=== PATIENT | female | born 1965 | race Caucasian/White ===

== ENCOUNTER 2024-08-02 21:45 | Inpatient (IN) | payer OTHER ==
[2024-08-02] MEDS ORDERED: MORPHINE SULFATE 2 MG/ML SYRINGE ONE (22:30)
[2024-08-02] MEDS ORDERED: diazePAM 5 MG TABLET ONE (22:30)
[2024-08-02] MEDS: morphine CARPU-JECT 2 MG/1 ML DISP.SYRIN IVPUSH ONE (22:47)
[2024-08-02] MEDS: diazePAM 5 MG TABLET PO ONE (22:47)
[2024-08-02 22:55] LABS: ABSOLUTE IMMATURE GRANULOCYTES 0.02 x10^3/uL (0.0-0.031); BASOPHILS # 0.04 x10^3/uL (0.01-0.08); EOSINOPHIL % 1.8 % (0.7-5.8); EOSINOPHILS # 0.13 x10^3/uL (0.04-0.36); HEMOGLOBIN 10.6 g/dL (11.2-15.7); MCHC 32.1 g/dl (32.2-35.5); MEAN CELL VOLUME 85.9 fl (79.4-94.8); MEAN PLT VOLUME 11.7 fl (9.4-12.3); MONOCYTE # 0.67 x10^3/uL (0.24-0.86); MONOCYTE % 9.2 % (4.7-12.5); PLATELET COUNT 166 x10^3/uL (182-369); RDW 13.4 % (12.3-16.6)
[2024-08-02 23:25] LABS: POTASSIUM 5.1 mmol/L (3.5-5.1)
[2024-08-02 23:27] LABS: CALCIUM 9.6 mg/dL (8.5-10.1)
[2024-08-02 23:28] LABS: ALBUMIN 3.8 g/dl (3.4-5.0); MAGNESIUM 2.4 mg/dL (1.8-2.4)
[2024-08-02 23:31] LABS: CREATININE 1.2 mg/dL (0.55-1.3)
[2024-08-02 23:33] LABS: BILIRUBIN,TOTAL 0.4 mg/dL (0.2-1); LACTIC ACID 2.4 mmol/L (0.4-2.0)
[2024-08-02 23:36] LABS: N-TERMINAL BNP 41.9 pg/ml (5-125)
[2024-08-03 00:34] LABS: INR 0.99 (0.83-1.09); PROTHROMBIN TIME (PATIENT) 10.9 SEC (9.7-13.0)
[2024-08-03 00:37] LABS: ACTIVATED PTT 29.1 SECONDS (25.2-36.5)
[2024-08-03] MEDS: SODIUM CHLORIDE 0.9% 1000 ML INFUS.BAG IV ONE (00:38)
[2024-08-03 01:08] LABS: CHLORIDE 106 mmol/L (98-107); POTASSIUM 3.9 mmol/L (3.5-5.1); SODIUM 138 mmol/L (136-145)
[2024-08-03 01:09] LABS: ANION GAP 9 mmol/L (4-13); BLOOD UREA NITROGEN 25.5 mg/dL (7-18); CALCIUM 9.5 mg/dL (8.5-10.1); CO2 23 mmol/L (21-32)
[2024-08-03 01:10] LABS: GLUCOSE,RANDOM 290 mg/dL (74-106)
[2024-08-03] MEDS ORDERED: ASPIRIN COATED 81 MG TABLET.EC ONE (01:10)
[2024-08-03] MEDS: ASPIRIN 81 MG CHEWABLE TABLETS PO ONE ×2 (01:12→02:31)
[2024-08-03 01:13] LABS: CREATININE 1.1 mg/dL (0.55-1.3)
[2024-08-03] MEDS ORDERED: ACETAMINOPHEN INJECTION 100 ML ONE (01:13)
[2024-08-03] MEDS: ACETAMINOPHEN 1000 MG/100 ML BAG IVPB ONE (01:15)
[2024-08-03 06:18] LABS: ERYTHROCYTE SEDIMENTATION RATE 28 mm/hr (0-30)
[2024-08-03] MEDS: INSULIN ASPART SLIDING SCALE (NOVOLOG) 1 VIAL SQ SCH (06:35)
[2024-08-03] MEDS: INSULIN GLARGINE (LANTUS) 100 UNITS/ML UNITS SQ SCH (06:35)
[2024-08-03] MEDS: NITROGLYCERIN SUBLINGUAL 1/150 0.4 MG TAB SL PRN (08:04)
[2024-08-03] MEDS: SODIUM CHLORIDE 1,000 ML IV STA (08:48)
[2024-08-03] MEDS: RAMIPRIL 5 MG CAPSULE PO SCH (09:22)
[2024-08-03] MEDS: ASPIRIN 81 MG CHEWABLE TABLETS PO SCH (09:22)
[2024-08-03] MEDS: TICAGRELOR 90 MG TABLET PO SCH (09:22)
[2024-08-03] MEDS: ESCITALOPRAM OXALATE 10 MG TABLET PO SCH (09:22)
[2024-08-03] MEDS: morphine SULFATE 4 MG/ML VIAL IVPUSH ONE (09:24)
[2024-08-03] MEDS: INSULIN (NOVOLOG) ASPART 100 UNITS/ML 10ML VIAL SQ SCH (09:25)
[2024-08-03] MEDS: morphine CARPU-JECT 2 MG/1 ML DISP.SYRIN IVPUSH ONE ×2 (09:27→12:41)
[2024-08-03] MEDS: ENOXAPARIN NA (PORCINE) 40 MG/0.4 ML DISP.SYRIN SQ SCH (09:28)
[2024-08-03] MEDS: ACETAMINOPHEN 1000 MG/100 ML BAG IVPB SCH (09:29)
[2024-08-03] MEDS: EMPAGLIFLOZIN (JARDIANCE) 25 MG TABLET PO SCH (11:53)
[2024-08-03] MEDS: KETOROLAC TROMETHAMINE 30 MG/1 ML VIAL IM SCH (11:54)
[2024-08-03] MEDS: ATENOLOL 50 MG TABLET (FP) PO SCH (11:54)
[2024-08-03] MEDS: ALPRAZolam 1 MG TABLET PO PRN (11:55)
[2024-08-03 12:44] VITALS: BMI 27.9
[2024-08-03] MEDS: [UNRECOGNIZED DRUG - OTHER] PO SCH (18:25)
[2024-08-03] MEDS: EMPAGLIFLOZIN PO SCH (18:25)
[2024-08-03] MEDS: LINAGLIPTIN PO SCH (18:25)
[2024-08-03] MEDS: KETOROLAC TROMETHAMINE 15 MG/ML VIAL IM SCH (21:02)
[2024-08-03] MEDS: ATORVASTATIN CA 40 MG TABLET (FP) PO SCH (21:16)
[2024-08-03] MEDS: QUEtiapine FUMARATE 25 MG TABLET PO SCH (21:17)
[2024-08-03] MEDS: ALPRAZolam 0.25 MG TABLET PO ONE (22:23)
[2024-08-04] MEDS ORDERED: INSULIN GLARGINE (LANTUS) 100 UNITS/ML UNITS SQ ONE (06:31)
[2024-08-04 07:04] LABS: ABSOLUTE IMMATURE GRANULOCYTES 0.02 x10^3/uL (0.0-0.031); BASOPHILS # 0.03 x10^3/uL (0.01-0.08); EOSINOPHIL % 2.1 % (0.7-5.8); EOSINOPHILS # 0.19 x10^3/uL (0.04-0.36); HEMATOCRIT 29.4 % (34.1-44.9); HEMOGLOBIN 9.3 g/dL (11.2-15.7); MCHC 31.6 g/dl (32.2-35.5); MEAN PLT VOLUME 12.4 fl (9.4-12.3); MONOCYTE % 9.9 % (4.7-12.5); PLATELET COUNT 149 x10^3/uL (182-369)
[2024-08-04 07:25] LABS: POTASSIUM 4.4 mmol/L (3.5-5.1)
[2024-08-04 07:28] LABS: ALBUMIN 3.3 g/dl (3.4-5.0); BLOOD UREA NITROGEN 34.6 mg/dL (7-18); MAGNESIUM 2.3 mg/dL (1.8-2.4)
[2024-08-04 07:32] LABS: CREATININE 1.2 mg/dL (0.55-1.3)
[2024-08-04 07:33] LABS: BILIRUBIN,TOTAL 0.3 mg/dL (0.2-1)
[2024-08-04 13:48] LABS: URINE APPEARANCE CLEAR; URINE BILIRUBIN NEGATIVE (NEGATIVE); URINE COLOR YELLOW; URINE GLUCOSE (UA) 3+ (NEGATIVE); URINE KETONE NEGATIVE (NEGATIVE); URINE LEUK ESTERASE NEGATIVE (NEGATIVE); URINE NITRITE NEGATIVE (NEGATIVE); URINE PROTEIN NEGATIVE (NEGATIVE); URINE UROBILINOGEN 0.2 mg/dL (0.2-1.0)
[2024-08-04] MEDS: ALPRAZolam 0.25 MG TABLET PO PRN (21:53)
[2024-08-05] MEDS ORDERED: INSULIN ASPART SLIDING SCALE (NOVOLOG) 1 VIAL SQ ONE (06:42)
[2024-08-05 06:52] LABS: ABSOLUTE IMMATURE GRANULOCYTES 0.01 x10^3/uL (0.0-0.031); BASOPHILS # 0.04 x10^3/uL (0.01-0.08); EOSINOPHIL % 4.3 % (0.7-5.8); EOSINOPHILS # 0.26 x10^3/uL (0.04-0.36); HEMATOCRIT 28.1 % (34.1-44.9); MEAN CELL VOLUME 87.3 fl (79.4-94.8); MEAN PLT VOLUME 11.9 fl (9.4-12.3); PLATELET COUNT 138 x10^3/uL (182-369); RDW 13.8 % (12.3-16.6)
[2024-08-05 07:09] LABS: POTASSIUM 4.2 mmol/L (3.5-5.1)
[2024-08-05 07:13] LABS: CALCIUM 8.7 mg/dL (8.5-10.1)
[2024-08-05 07:14] LABS: BLOOD UREA NITROGEN 34.1 mg/dL (7-18)
[2024-08-05] MEDS: INSULIN (NOVOLOG) ASPART 100 UNITS/ML 10ML VIAL SQ SCH (08:53)
[2024-08-05] MEDS: ACETAMINOPHEN 325 MG TABLET (FP) PO SCH (08:53)
[2024-08-05] MEDS: ALPRAZolam 0.25 MG TABLET PO PRN (21:54)
[2024-08-06] MEDS ORDERED: INSULIN GLARGINE (LANTUS) 100 UNITS/ML UNITS SQ ONE (06:39)
[2024-08-06] MEDS ORDERED: INSULIN ASPART SLIDING SCALE (NOVOLOG) 1 VIAL SQ ONE (06:40)
[2024-08-06 07:25] LABS: HEMATOCRIT 30.6 % (34.1-44.9); HEMOGLOBIN 9.6 g/dL (11.2-15.7); MCHC 31.4 g/dl (32.2-35.5); MEAN CELL VOLUME 88.7 fl (79.4-94.8); MEAN PLT VOLUME 12.3 fl (9.4-12.3); PLATELET COUNT 149 x10^3/uL (182-369); RDW 14.1 % (12.3-16.6)
[2024-08-06 07:28] LABS: POTASSIUM 4.5 mmol/L (3.5-5.1)
[2024-08-06 07:32] LABS: BLOOD UREA NITROGEN 27.1 mg/dL (7-18); CALCIUM 9.2 mg/dL (8.5-10.1); MAGNESIUM 2.2 mg/dL (1.8-2.4)
[2024-08-06 07:35] LABS: CREATININE 0.9 mg/dL (0.55-1.3)
[2024-08-06 07:37] LABS: PHOSPHOROUS 4.6 mg/dL (2.5-4.9)
[2024-08-06] MEDS: TOPIRAMATE 25 MG TABLET PO SCH (09:49)
[2024-08-06] MEDS: PRAMIPEXOLE DIHYDROCHLORIDE 0.25 MG TABLET PO SCH (10:50)
[2024-08-06 15:03] VITALS: RESP 18
[2024-08-06] MEDS: KETOROLAC TROMETHAMINE 15 MG/ML VIAL IVPUSH ONE (23:12)
[2024-08-07] MEDS: EMPAGLIFLOZIN (JARDIANCE) 25 MG TABLET PO SCH (06:14)
[2024-08-07 06:50] LABS: HEMATOCRIT 30.1 % (34.1-44.9); HEMOGLOBIN 9.4 g/dL (11.2-15.7); MCHC 31.2 g/dl (32.2-35.5); MEAN CELL VOLUME 89.1 fl (79.4-94.8); PLATELET COUNT 153 x10^3/uL (182-369); RDW 14.3 % (12.3-16.6)
[2024-08-07 07:14] LABS: POTASSIUM 4.1 mmol/L (3.5-5.1)
[2024-08-07 07:15] LABS: CALCIUM 9.4 mg/dL (8.5-10.1)
[2024-08-07 07:33] LABS: BLOOD UREA NITROGEN 25.5 mg/dL (7-18); MAGNESIUM 2.3 mg/dL (1.8-2.4)
[2024-08-07 07:37] LABS: CREATININE 0.9 mg/dL (0.55-1.3)
[2024-08-07 07:41] LABS: PHOSPHOROUS 5.6 mg/dL (2.5-4.9)
[2024-08-07] MEDS ORDERED: REGADENOSON 0.4 MG/5 ML PRE-FILLED SYRINGE IVPUSH ONE (09:18)
[2024-08-07] MEDS: REGADENOSON 0.4 MG/5 ML PRE-FILLED SYRINGE IVPUSH ONE (10:27)
[2024-08-07] MEDS: AMINOPHYLLINE 500 MG/20 ML VIAL IV ONE (10:30)
[2024-08-07] MEDS ORDERED: AMINOPHYLLINE 250 MG/10 ML VIAL ONE (10:36)
[2024-08-07] MEDS: ATENOLOL 25 MG TABLET (FP) PO SCH (11:47)
[2024-08-07] MEDS: RAMIPRIL 1.25 MG CAPSULE PO SCH (11:48)
[2024-08-07] MEDS: SEVELAMER CARBONATE 0.8 GM POWDER PACKET PO ONE (14:09)
[2024-08-07 20:12] VITALS: BP 129/90; PULSE 67; TEMP 97.5
== END 2024-08-07 22:08 | disposition home or self-care (01) | DRG 198 ==
LOC: JER 21:45 → JERBED 08-03 02:20 → OBSVTOIN 08-03 04:28 → J4S 08-03 06:25
PROVIDERS: ADMIT Internal Medicine; ATTEND Internal Medicine
DX: R07.89 Other chest pain (principal); I25.10 Atherosclerotic heart disease of native coronary artery without angina pectoris; I11.0 Hypertensive heart disease with heart failure; I50.30 Unspecified diastolic (congestive) heart failure; E11.65 Type 2 diabetes mellitus with hyperglycemia; E78.5 Hyperlipidemia, unspecified; F41.9 Anxiety disorder, unspecified; G25.81 Restless legs syndrome; G43.909 Migraine, unspecified, not intractable, without status migrainosus; M79.601 Pain in right arm
CPT/HCPCS: 0241U-QW; 36415; 71045-TC-FY; 71275-TC; 72125-TC; 72170-TC-FY; 74174-TC; 78452-TC; 80048; 80053; 80061; 81003; 82550; 82553; 82962; 83036; 83605; 83690; 83735; 83880; 84100; 84484; 85025; 85027; 85610; 85651; 85730; 86140; 87086; 93005; 93010; 93017; 93306-TC; 93922; 93926-TC; 93931; 99285-25; A9502; G0378; J0131; J2785; Q9967

== ENCOUNTER 2024-10-09 17:43 | Observation (INO) | payer OTHER ==
[2024-10-09 18:47] LABS: BG HCT 35.0 % (32.4-45.2); VENOUS BASE EXCESS -5.6 mmol/L (-2-2); VENOUS O2 SATURATION 29.7 % (70-80); VENOUS PCO2 58.0 mmHg (38-52); VENOUS PH 7.212 (7.310-7.410)
[2024-10-09 18:50] LABS: ABSOLUTE IMMATURE GRANULOCYTES 0.03 x10^3/uL (0.0-0.031); BASOPHILS # 0.03 x10^3/uL (0.01-0.08); EOSINOPHIL % 1.8 % (0.7-5.8); EOSINOPHILS # 0.13 x10^3/uL (0.04-0.36); MCHC 30.4 g/dl (32.2-35.5); MEAN CELL VOLUME 91.0 fl (79.4-94.8); MEAN PLT VOLUME 11.5 fl (9.4-12.3); MONOCYTE # 0.71 x10^3/uL (0.24-0.86); MONOCYTE % 9.6 % (4.7-12.5); RDW 13.5 % (12.3-16.6)
[2024-10-09 18:57] LABS: URINE APPEARANCE CLEAR; URINE BILIRUBIN NEGATIVE (NEGATIVE); URINE COLOR YELLOW; URINE GLUCOSE (UA) 3+ (NEGATIVE); URINE KETONE NEGATIVE (NEGATIVE); URINE LEUK ESTERASE NEGATIVE (NEGATIVE); URINE NITRITE NEGATIVE (NEGATIVE); URINE PROTEIN NEGATIVE (NEGATIVE); URINE UROBILINOGEN 0.2 mg/dL (0.2-1.0)
[2024-10-09 18:59] LABS: INR 0.93 (0.83-1.09); PROTHROMBIN TIME (PATIENT) 10.2 SEC (9.7-13.0)
[2024-10-09 19:02] LABS: ACTIVATED PTT 28.8 SECONDS (25.2-36.5)
[2024-10-09 19:17] LABS: CO2 24.0 mmol/L (21-32); GLUCOSE,RANDOM 393.0 mg/dL (74-106)
[2024-10-09 19:19] LABS: CREATININE 1.4 mg/dL (0.55-1.3); SGOT/AST 20.0 U/L (15-37); SGPT/ALT 23.0 U/L (13-61)
[2024-10-09 19:21] LABS: TOT PROT 6.8 g/dl (6.4-8.2)
[2024-10-09 19:22] LABS: ALK PHOS 76.0 U/L (45-117); N-TERMINAL BNP 39.9 pg/ml (5-125)
[2024-10-09 19:28] LABS: LACTIC ACID 3.8 mmol/L (0.4-2.0)
[2024-10-09] MEDS ORDERED: ACETAMINOPHEN INJECTION 100 ML ONE (19:58)
[2024-10-09] MEDS: ACETAMINOPHEN 1000 MG/100 ML BAG IVPB ONE (20:03)
[2024-10-09] MEDS: LACTATED RINGERS SOLUTION 1000 ML INFUS.BAG IV ONE (20:03)
[2024-10-09] MEDS: SODIUM CHLORIDE 0.9% 500 ML INFUS.BAG IV ONE (20:22)
[2024-10-09] MEDS: INSULIN (NOVOLOG) ASPART 100 UNITS/ML 10ML VIAL SQ ONE (21:32)
[2024-10-10] MEDS: INSULIN ASPART SLIDING SCALE (NOVOLOG) 1 VIAL SQ SCH (01:39)
[2024-10-10] MEDS: LIDOCAINE 4% PATCH TP ONE (02:14)
[2024-10-10] MEDS ORDERED: ONDANSETRON 4 MG/2 ML VIAL IVPUSH PRN (03:37)
[2024-10-10 03:46] VITALS: RESP 18; BMI 29.9
[2024-10-10] MEDS: PANTOPRAZOLE 40 MG TABLET PO SCH (03:52)
[2024-10-10] MEDS: ACETAMINOPHEN 1000 MG/100 ML BAG IVPB ONE (03:53)
[2024-10-10] MEDS: HEPARIN NA (PORCINE) 5,000 UNITS/ML 1ML VIAL SQ SCH (06:10)
[2024-10-10] MEDS: INSULIN (NOVOLOG) ASPART 100 UNITS/ML 10ML VIAL SQ SCH ×2 (06:35→11:44)
[2024-10-10] MEDS: INSULIN GLARGINE (LANTUS) 100 UNITS/ML UNITS SQ SCH (06:35)
[2024-10-10] MEDS ORDERED: INSULIN GLARGINE (LANTUS) 100 UNITS/ML UNITS SQ SCH (07:00)
[2024-10-10] MEDS ORDERED: INSULIN ASPART SLIDING SCALE (NOVOLOG) 1 VIAL SQ SCH (07:00)
[2024-10-10] MEDS ORDERED: INSULIN (NOVOLOG) ASPART 100 UNITS/ML 10ML VIAL SQ SCH (07:00)
[2024-10-10 08:08] LABS: MCHC 31.1 g/dl (32.2-35.5); MEAN CELL VOLUME 89.4 fl (79.4-94.8); MEAN PLT VOLUME 12.8 fl (9.4-12.3); RDW 13.3 % (12.3-16.6)
[2024-10-10 08:49] LABS: CO2 24.0 mmol/L (21-32); GLUCOSE,RANDOM 138.0 mg/dL (74-106); LDL CHOLESTEROL (ONLY SJRH) 69.0 mg/dL (5-100)
[2024-10-10 08:51] LABS: ALK PHOS 67.0 U/L (45-117); CREATININE 0.8 mg/dL (0.55-1.3)
[2024-10-10 08:52] LABS: SGOT/AST 15.0 U/L (15-37); SGPT/ALT 21.0 U/L (13-61)
[2024-10-10 08:55] LABS: TOT PROT 6.3 g/dl (6.4-8.2)
[2024-10-10] MEDS: ATENOLOL 25 MG TABLET (FP) PO SCH (09:35)
[2024-10-10] MEDS: ASPIRIN 81 MG CHEWABLE TABLETS PO SCH (09:35)
[2024-10-10] MEDS: TICAGRELOR 90 MG TABLET PO SCH (09:36)
[2024-10-10] MEDS: ESCITALOPRAM OXALATE 10 MG TABLET PO SCH (09:36)
[2024-10-10] MEDS: ATENOLOL 50 MG TABLET (FP) PO SCH (11:03)
[2024-10-10 14:43] VITALS: BP 116/66; PULSE 92; TEMP 98.1
[2024-10-10] MEDS: ACETAMINOPHEN 325 MG TABLET (FP) PO ONE (15:40)
[2024-10-10] MEDS ORDERED: LIDOCAINE PATCH REMOVAL MC SCH (22:00)
[2024-10-10] MEDS ORDERED: ROSUVASTATIN CA 40 MG TABLET PO SCH (22:00)
== END 2024-10-10 17:53 | disposition home or self-care (01) ==
LOC: JER 17:43 → UNDOADMOB 17:53 → JERBED 17:53 → INTOOBSV 23:23 → OBSVTOIN 23:23 → JERBED 10-10 01:27 → J4W 10-10 01:27 → JERBED 10-10 10:12
PROVIDERS: ADMIT Student in an Organized Health Care Education/Training Program; ATTEND Internal Medicine
PROC: 3E033NZ Introduction of Analgesics, Hypnotics, Sedatives into Peripheral Vein, Percutaneous Approach (ICD-10-PCS; principal; 2024-10-10)
PROC: 3E023GC Introduction of Other Therapeutic Substance into Muscle, Percutaneous Approach (ICD-10-PCS; 2024-10-10)
PROC: 3E013VG Introduction of Insulin into Subcutaneous Tissue, Percutaneous Approach (ICD-10-PCS; 2024-10-10)
PROC: 3E0337Z Introduction of Electrolytic and Water Balance Substance into Peripheral Vein, Percutaneous Approach (ICD-10-PCS; 2024-10-10)
DX: E87.21 Acute metabolic acidosis (principal); N17.9 Acute kidney failure, unspecified; F99 Mental disorder, not otherwise specified; I25.10 Atherosclerotic heart disease of native coronary artery without angina pectoris; I10 Essential (primary) hypertension; E11.9 Type 2 diabetes mellitus without complications; Z95.5 Presence of coronary angioplasty implant and graft; H54.8 Legal blindness, as defined in USA; R07.9 Chest pain, unspecified
CPT/HCPCS: 36415; 71045-TC-FY; 73030-TC-LT-FY; 76775-TC; 80053; 80061; 81003; 82010; 82803; 82962; 83036; 83605; 83690; 83735; 83880; 84100; 84436; 84443; 84484; 85025; 85027; 85610; 85730; 86850; 86900; 86901; 87086; 87637-QW; 93005; 93010; 93308; 96372; 96374; 96376; 97116-GP; 97162-GP; 99285-25; G0378